=== PATIENT | male | born 1965 | race African-American/Black ===

== ENCOUNTER 2018-02-23 09:04 | Outpatient (CLI) | payer MEDICARE ==
--- NOTE | 2018-02-23 10:26 | RAD ---
LUMBAR SPINE THREE VIEWS: INDICATIONS: Low back pain. FINDINGS: The lumbar vertebrae maintain normal height and alignment. The disk spaces are maintained. Mild deg enerative spurring is seen, and there is mild facet hypertrophy. No evidence of spondylolisthesis. IMPRESSION: Mild degenerative changes of the lumbar spine. POS: [facility]
== END 2018-02-23 09:05 | disposition home or self-care (01) ==
LOC: SCSRAD 09:04
PROVIDERS: ATTEND Family Medicine
DX: S39.012A Strain of muscle, fascia and tendon of lower back, initial encounter (principal); M47.896 Other spondylosis, lumbar region
CPT/HCPCS: 72100

== ENCOUNTER 2018-04-27 12:41 | Emergency (ER) | payer MEDICARE | END 2018-04-27 13:41 | disposition home or self-care (01) | LOC: SCSER 12:41 | DX: N61.0 Mastitis without abscess (principal); E78.5 Hyperlipidemia, unspecified; I10 Essential (primary) hypertension; Z79.899 Other long term (current) drug therapy | CPT/HCPCS: 99283 ==